=== PATIENT | female | born 1995 | race Caucasian/White ===

== ENCOUNTER 2017-06-12 09:43 | Emergency (ER) | payer MEDICAID ==
--- NOTE | 2017-06-12 10:04 | ED Physician Chart ---
ED Chief Complaint/HPI - Patient Information Date Seen:: 06/12/17 Time Seen:: 10:04 Chief Complaint:: PAIN IN LEFT SIDE OF NECK AND INSIDE MOUTH History of Present Illness:: THIS 21 YEAR OLD FEMALE PRESENTS WITH ONSET OF PAIN IN THE LT SUBMANDIBULAR OF HER NECK. SHE HAD NO PAIN WHEN SHE WENT TO BED LAST EVENING. SHE RATE THE PAIN A 6/10 AND IT IS CHARACTERIZED A DULL ACHE. THERE WAS NO HISTORY OF INJURY, FEVER OR CHILLS. THE PAIN HAS NO RELIEVING QUALITIES AND IS WORSE WITH ANY PRESSURE UNDER THE MANDABLE. NO DENTAL PAIN. NO PRIOR HISTORY OFF SIMILAR EPISODE. Allergies:: Allergies Allergy/AdvReac Type Severity Reaction Status Date / Time No Known Allergies Allergy Verified 06/12/17 10:01 ED Review of Systems - Review of Systems General/Constitutional: No fever, No chills, No weakness, No diaphoresis, Edema , No loss of appetite Skin: No skin lesions, No rash, No bruising Head: No headache, No light-headedness Eyes: No loss of vision, No diplopia ENT: No earache, No sore throat, No tinnitus Neck: Neck pain, Stiffness, No mass noted Cardio Vascular: No chest pain, No PND, No edema Pulmonary: No SOB, No cough, No sputum, No wheezing GI: No nausea, No vomiting, No diarrhea, No pain, No constipation G/U: No dysuria, No frequency, No hematuria Rapid Outsole Stitcher: No abnormal vaginal bleed Musculoskeletal: No bone or joint pain, No back pain, No muscle pain Endocrine: No polyuria, No polydipsia Psychiatric: Prior psych history, No suicidal ideation Hematopoietic: No bruising, No lymphadenopathy Allergic/Immuno: No urticaria, No angioedema Neurological: No syncope, No weakness, No paresthesia, No headache, No seizure, No dizziness, No confusion ED Past Medical History - Past Medical History Past Medical History: No significant medical hx (ENDOSCOPY FOR PUD) Social History: Non Smoker, No Alcohol, No Drug Use, Single, Employed Family Medical History - Family Member Mother Hx Family Cancer: No Hx Family Coronary Artery Disease: No Hx Family Congestive Heart Failure: No Hx Family Hypertension: No Hx Family Diabetes: No Hx Family Seizures: No Hx Family AIDS: No Hx Family HIV: No Hx Family COPD: No Hx Family Psychiatric Problems: No ED Physical Exam - Physical Examination General/Constitutional: Awake, Well-developed, well-nourished, Alert, No distress, Non-toxic appearing, Ambulatory Head: Atraumatic Eyes: Lids, conjuctiva normal, PERRL, EOMI Skin: Nl inspection, No rash, No skin lesions, No ecchymosis, Well hydrated, No lymphadenopathy ENMT: External ears, nose nl, TM canals nl, Nasal exam nl, Lips, teeth, gums nl , Tonsils nl Other ENMT comments:: NO PARA TONSILAR MASSES. TENDERNESS IN THE FLOOR OF TH4 MOUTH ON THE LEFT SIDE. TEETH IN GOOD REPAIR. NECK WITH TENDERNESS IN THE LT SUBMENTAL REGION WITH NO REDNESS OR DISTINCT MASSES. NO CERVICAL ADENOPATHY. Neck: No JVD, No mass, No stridor Respiratory: Nl effort/Exclusion, Clear to Auscultation, No Wheeze/Rhonchi/Rales Cardio Vascular: No murmur, gallop, rubs, NL S1 S2, Carotid/Femoral/Distal pulses equal bilaterally GI: No tenderness/rebounding/guarding, No organomegaly, Nondistended, No McBurney tenderness : No CVA tenderness Extremities: No tenderness or effusion, Full ROM, normal strength in all extremities, No edema Neuro/Psych: Alert/oriented, Normal sensory exam, Normal motor strength, Judgement/insight normal, Mood normal, Normal gait, No focal deficits ED Labs/Radiology/EKG Results - Lab Results Results: Laboratory Tests 06/12/17 06/12/17 06/12/17 10:23 10:30 11:00 WBC 6.1 RBC 4.76 Hgb 14.6 Hct 43.1 MCV 90.5 MCH 30.6 MCHC Differential 33.8 RDW 11.5 Plt Count 201 MPV 8.9 Neutrophils % 69.0 Lymphocytes % 24.8 Monocytes % 4.9 Eosinophils % 0.7 Basophils % 0.6 Sodium 136 Potassium 3.9 Chloride 105 Carbon Dioxide 26.8 Anion Gap 8.1 BUN 16 Creatinine 0.8 Est GFR ( Amer) > 60.0 Est GFR (Non-Af Amer) > 60.0 BUN/Creatinine Ratio 20.0 Glucose 79 Calcium 9.1 Urine Test NEGATIVE LAB INTERPRETATION: THE CVC is unremarkable with no leukocytosis, anemia or platelet disorder. Metabolic studies are also unremarkable. CT scan of the neck was positive for inflammation in the region of the left submandibular salivary gland. ED Assessment - Assessment General Assessment: CASE SUMMARY: this 21-year-old female. This morning with moderate to severe pain in the left submandibular region of her face. She denied any fever, chills and the CBC shows a normal account. She has tenderness in the region and a CT scan showed inflammation of the salivary gland in that position. I started her on a regimen of ibuprofen and referred her to her primary physician for ENT consultation. Discharged in stable condition. MDM DDX PAIN IN THE ORAL REGION: NOT FATUMA-tonsillarr abscess based on physical examination. NOT RETRO PHARYNGEAL ABSCESS BASED ON THE NEGATIVE CT scan. NOT Lemierre's Syndrome based on no tenderness along the course of the internal jugular vein. Also with no inflamation along the course of the vein. not dental abscess based on CT RESULTS. ED Septic Shock - . Is Septic Shock (SBP<90, OR Lactate>4 mmol\L) present?: No ED Reassessment (Disposition) - Reassessment Reassessment Condition:: Unchanged - Diagnosis Diagnosis:: SIDADENITIS OF LT SUBMANDIBULAR GLAND DISCHARGED WITH A SCRIP FOR NORCO 7.5/325 FOR PAIN CONTROL. ADVISED NOT TAKING WITH ALCOHOL AND NOT WITHIN 6 HOURS OF DRIVING OR OR ACTIVITIES REQUIRING ALERTNESS. FOLLOW UP WITH YOUR REGULAR DOCTOR FOR ENT CONSULTATION. RETURN TO THE ER IF YOUR SYMPTOMS WORSEN. ED Discharge Plan - Patient Disposition Admit/Discharge/Transfer: PT DISCHARGED HOME Condition at Disposition: Stable Instructions: Salivary Gland Infection
[2017-06-12] MEDS ORDERED: IOHEXOL 300mgI/mL 100 ML VIAL PO ONE (10:30)
[2017-06-12 10:39] LABS: % BASOPHILS 0.6 % (0.0-2.0); % EOSINOPHILS 0.7 % (0.0-5.0); % LYMPHOCYTES 24.8 % (20.0-50.0); % MONOCYTES 4.9 % (2.0-10.0); HEMATOCRIT 43.1 % (41.0-60); HEMOGLOBIN 14.6 gm/dL (12-16); LYMPHOCYTE ABSOLUTE 1.5 Th/cmm (1.5-3.0); MEAN CELL VOLUME 90.5 fl (81-100); MEAN CORPUSCULAR HEMOGLOBIN 30.6 pg (27.0-31.0); MEAN CORPUSCULAR HGB CONC 33.8 pg (28.0-36.0); MEAN PLATELET VOLUME 8.9 fl; MONOCYTE ABSOLUTE 0.3 Th/cmm (0.3-1.0); NEUTROPHILE ABSOLUTE 4.3 Th/cmm (1.8-8.0); PLATELET COUNT 201 Th/cmm (150-400); RED BLOOD COUNT 4.76 Mil/cmm (3.80-5.10); RED CELL DISTRIBUTION WIDTH 11.5 % (11.5-20.0); WHITE BLOOD COUNT 6.1 Th/cmm (4.8-10.8)
[2017-06-12 10:59] LABS: ANION GAP 8.1 (7.0-16.0); BUN - UREA NITROGEN 16 mg/dL (7-25); CALCIUM SERUM 9.1 mg/dL (8.6-10.3); CARBON DIOXIDE 26.8 mEq/L (21.0-31.0); CHLORIDE 105 mEq/L (98-107); CREATININE - SERUM 0.8 mg/dL (0.6-1.2); GFR AFRICAN-AMERICAN > 60.0 ml/min (>90); GFR NON AFRICAN-AMERICAN > 60.0 ml/min; GLUCOSE 79 mg/dL (70-105); POTASSIUM SERUM 3.9 mEq/L (3.5-5.1); SODIUM SERUM 136 mEq/L (136-145)
[2017-06-12] MEDS ORDERED: Hydrocodone/APAP 10 mg/325 mg Tab ONE (12:49)
--- NOTE | 2017-06-13 09:54 | Diagnostic Imaging Report ---
CT scan soft tissues of the neck venous contrast HISTORY: Pain Total DLP equals CTDI equals Axial sections were obtained from the lower margins of the orbits down to the thoracic inlet. The exam demonstrates mild enlargement of the left submandibular gland with heterogeneous enhancement following contrast administration. Slight haziness of the adjacent fat planes. No discrete focal lesions are seen. The findings may be associated with inflammatory change. Clinical correlation is needed. No other abnormal masses are seen. Preservation of normal margins about the major vascular landmarks. No abnormalities are seen in the region of the epiglottis, valleculae, pyriform sinuses. The cervical trachea appears normal. Mucosal thickening noted within the left maxillary and left ethmoid sinuses. IMPRESSION: 1. Mild enlargement and heterogeneous enhancement involving the left submandibular gland that may be associated with inflammatory change. Clinical correlation needed. 2. Mild mucosal thickening within the left maxillary and ethmoid sinuses
== END 2017-06-12 14:01 | disposition home or self-care (01) ==
LOC: ER 09:43
DX: K11.20 Sialoadenitis, unspecified (principal)
CPT/HCPCS: 99285; 96372; 70491; 36415; 85025; 81025; 80048; J1885; Q9967